=== PATIENT | female | born 1955 | race Caucasian/White ===

== ENCOUNTER → 2018-01-30 | Outpatient (CLI) | payer BC ==
[~2018-01-30] MED LIST: ASPI81TA86 PO; LISI-362 PO
--- NOTE | 2018-01-30 15:45 | EKG ---
FACILITY: [facility] - [place] PATIENT NAME: PAMELA HUYNH : [id number] MR: [id number]: [id number] EXAM DATE: ORDERING PHYSICIAN: LASHAY PINEDA TECHNOLOGIST: LILY Test Reason : ELEVATED BP Blood Pressure : / mmHG Vent. Rate : 060 BPM Atrial Rate : 060 BPM P-R Int : 144 ms QRS Dur : 080 ms QT Int : 448 ms P-R-T Axes : 059 -03 016 degrees QTc Int : 448 ms Normal sinus rhythm Normal ECG No previous ECGs available Referred By: Confirmed By:
== END ==
LOC: RESP 11:02
PROVIDERS: ATTEND Emergency Medicine
DX: Z02.9 Encounter for administrative examinations, unspecified (principal)

== ENCOUNTER → 2018-04-16 | Outpatient (CLI) | payer BC ==
[~2018-04-16] MED LIST changes: +LISI30TA49 PO; +LOSA-57 PO
== END ==
LOC: LAB 09:29
PROVIDERS: ATTEND Emergency Medicine
DX: I10 Essential (primary) hypertension (principal)
CPT/HCPCS: 36415; 82310; 82374; 82435; 82565; 82947; 84132; 84295; 84520

== ENCOUNTER → 2018-05-02 | Outpatient (CLI) | payer BC ==
[~2018-05-02] MED LIST changes: +AMLO-96 PO; +LOSA100T67 PO
== END ==
LOC: LAB 13:12
PROVIDERS: ATTEND Emergency Medicine
DX: I10 Essential (primary) hypertension (principal)
CPT/HCPCS: 36415; 82310; 82374; 82435; 82565; 82947; 84132; 84295; 84520